=== PATIENT | female | born 1965 | race Caucasian/White ===

== ENCOUNTER 2016-06-05 01:36 | Observation (INO) | payer OTHER ==
--- NOTE | 2016-06-05 01:48 | C.PDOC ---
History Of Present Illness Patient took some unknown sleep medication . last known at baseline around 10 pm. Pt about 1 hour ago fell, as per her , she did not hit her head or any loc. But pt with bizarre affect, somewhat confused . Moves all extremities Time Seen by Provider: 06/05/16 01:43 Chief Complaint (Nursing): Altered Mental Status History Per: Family History/Exam Limitations: Clinical Condition Onset/Duration Of Symptoms: Hrs Onset Of Symptoms: <3 Hours Current Symptoms Are (Timing): Still Present Usual Baseline: Alert Oriented Exacerbating Factor(s): Other (poss sleeping medication and fall) Use Of Anticoag/Antiplatelets: No Speech Is: Normal Decreased Ability To: Stand Severity: Moderate Pain Scale Rating Of: 5 Recent travel outside of the [place]: No Additional History Per: Family Associated Symptoms: Trouble Concentrating. denies: Fever, Chills, Chest Pain, Neck Pain, Back Pain, Headache, Vomiting, Falling Past Medical History Reviewed: Historical Data, Nursing Documentation, Vital Signs Vital Signs: Last Vital Signs Temp 98.3 F 06/05/16 01:45 Pulse 136 H 06/05/16 01:45 Resp 22 06/05/16 01:45 BP 139/96 H 06/05/16 01:45 Pulse Ox 98 06/05/16 03:20 - Medical History PMH: Migraine Family History: States: No Known Family Hx - Social History Hx Tobacco Use: No Hx Alcohol Use: No Hx Substance Use: No - Immunization History Hx Influenza Vaccination: No Hx Pneumococcal Vaccination: No Review Of Systems Constitutional: Negative for: Fever, Chills Eyes: Negative for: Redness ENT: Negative for: Throat Pain Cardiovascular: Negative for: Chest Pain, Palpitations Respiratory: Negative for: Shortness of Breath Gastrointestinal: Negative for: Nausea, Vomiting, Abdominal Pain Genitourinary: Negative for: Dysuria Musculoskeletal: Negative for: Back Pain Skin: Negative for: Rash, Lesions, Jaundice, Bruising Neurological: Positive for: Confusion Psych: Positive for: Anxiety Physical Exam - Physical Exam Appears: In Acute Distress Skin: Warm, Dry Head: Atraumatic, Normacephalic Eye(s): bilateral: Normal Inspection, PERRL, EOMI Oral Mucosa: Moist Lips: Normal Appearing Neck: Supple Chest: Symmetrical Cardiovascular: Rhythm Regular Respiratory: No Rales, No Rhonchi, No Wheezing Gastrointestinal/Abdominal: Soft, No Tenderness, No Distention Back: Normal Inspection Extremity: Normal ROM Extremity: Bilateral: Normal Color And Temperature, Normal ROM Neurological/Psych: Oriented x3, Normal Speech, Normal Cognition Gait: Unsteady ED Course And Treatment - Laboratory Results Result Diagrams: 06/05/16 02:02 06/05/16 02:02 ECG: Interpreted By Me, Viewed By Me ECG Rhythm: Sinus Tachycardia (147), Nonspecific Changes O2 Sat by Pulse Oximetry: 98 Pulse Ox Interpretation: Normal - Radiology CXR: Interpreted by Me, Viewed By Me CXR Interpretation: Yes: Other (? rll infiltrate). No: Fracture, Pnemothorax Progress Note: blood work, ct head. 4:15 pt resting , vitals stable Critical Care Time - Critical Care Note Total Time (in mins): 30 Documented critical care: time excludes all time spent performing seperately billable procedures. Disposition Discussed With Dr.: Flaco Patel Comment: accepted the pt on his service and took over the care at 3:13AM Doctor Will See Patient In The: Hospital Counseled Patient/Family Regarding: Studies Performed, Diagnosis - Disposition Disposition: HOSPITALIZED Disposition Time: 01:48 Condition: GUARDED - POA Present On Arrival: None - Clinical Impression Clinical Impression: Change in mental status, Medication reaction Decision To Admit - Pt Status Changed To: Hospital Disposition Of: Inpatient - Admit Certification Admit to Inpatient:: After my assessment, the patient will require hospitalization for at least two midnights. This is because of the severity of symptoms shown, intensity of services needed, and/or the medical risk in this patient being treated as an outpatient. - InPatient: Physician Admission Certification:: After my assessment, the patient will require hospitalization for at least two midnights. This is because of the severity of symptoms shown, intensity of services needed, and/or the medical risk in this patient being treated as an outpatient. - . Bed Request Type: Telemetry Admitting Physician: Flaco Patel Patient Diagnosis: Change in mental status, Medication reaction
[2016-06-05] MEDS ORDERED: DiphenhydrAMINE 50 mg/ml Inj ONE (01:50)
[2016-06-05] MEDS ORDERED: DiphenhydrAMINE 50 mg/ml Inj IVP STA (02:06)
[2016-06-05 02:07] LABS: BASO # 0.2 K/uL (0.0-0.2); EOS # 0.2 K/uL (0.0-0.7); EOS % 2.1 % (0.0-4.0); LYMPH # 4.1 K/uL (1.0-4.3); LYMPH % 38.9 % (20.0-40.0); MEAN CELL VOLUME 81.9 fL (81.0-99.0); MEAN CORPUSCULAR HEMOGLOBIN 27.1 pg (27.0-31.0); MEAN CORPUSCULAR HGB CONC 33.1 g/dL (33.0-37.0); MEAN PLATELET VOLUME 8.6 fL (7.2-11.7); MONO % 9.1 % (0.0-10.0); RED CELL DISTRIBUTION WIDTH 15.4 % (11.5-14.5); WHITE BLOOD COUNT 10.5 K/uL (4.8-10.8)
[2016-06-05 02:12] LABS: VENOUS BLOOD GAS BASE EXCESS 1.7 mmol/L (0.0-2.0); VENOUS BLOOD GAS PCO2 42 mmHg (40-60); VENOUS BLOOD PH 7.41 (7.32-7.43)
[2016-06-05 02:36] LABS: CHLORIDE 104 mmol/L (98-107)
[2016-06-05 02:37] LABS: POTASSIUM 4.3 mmol/L (3.6-5.2); SODIUM 142 mmol/L (132-148)
[2016-06-05 02:39] LABS: ALB/GLOB RATIO 1.1 (1.0-2.1); ALKALINE PHOSPHATASE 118 U/L (38-126); ALT/SGPT 24 U/L (9-52); AST/SGOT 23 U/L (14-36); BILIRUBIN,TOTAL 0.6 mg/dL (0.2-1.3); BLOOD UREA NITROGEN 9 mg/dL (7-17); CARBON DIOXIDE 23 mmol/L (22-30); GFR AFRICAN-AMERICAN > 60; GLUCOSE,RANDOM 99 mg/dL (65-105); TOTAL PROTEIN 8.3 g/dL (6.3-8.3)
[2016-06-05 02:40] LABS: CALCIUM 8.8 mg/dl (8.6-10.4)
[2016-06-05 02:44] LABS: RBC URINE < 1 /hpf (0-3); URINE BILIRUBIN NEGATIVE (NEGATIVE); URINE BLOOD NEGATIVE (NEGATIVE); URINE COLOR Straw (YELLOW); URINE GLUCOSE (UA) NORMAL (Normal); URINE KETONE NEGATIVE (NEGATIVE); URINE LEUKOCYTE ESTERASE NEG Leu/uL (Negative); URINE PROTEIN NEGATIVE (NEGATIVE); URINE UROBILINOGEN NORMAL mg/dL (0.2-1.0); WBC URINE < 1 /hpf (0-5)
[2016-06-05] MEDS ORDERED: cefTRIAXone IV 1 gm in Dextros 50 ML IVPB ONE (03:40)
[2016-06-05 07:36] LABS: PHOSPHOROUS 3.7 mg/dL (2.5-4.5)
[2016-06-05 07:37] LABS: MAGNESIUM 2.1 mg/dL (1.6-2.3)
[2016-06-05 07:55] LABS: FREE T4 0.84 ng/dL (0.78-2.19)
[2016-06-05 08:09] LABS: THYROID STIMULATING HORMONE 3.29 mIU/L (0.46-4.68)
--- NOTE | 2016-06-05 09:01 | CT ---
PROCEDURE: CT HEAD WITHOUT CONTRAST. HISTORY: R/O Bleed, s/p fall COMPARISON: None available. TECHNIQUE: Axial computed tomography images were obtained through the head/brain without intravenous contrast. Radiation dose: Total exam DLP = 886.04 mGy-cm. This CT exam was performed using one or more of the following dose reduction techniques: Automated exposure control, adjustment of the mA and/or kV according to patient size, and/or use of iterative reconstruction technique. FINDINGS: Examination markedly limited due to excessive motion artifact; base of skull images are essentially nondiagnostic. HEMORRHAGE: No gross intracranial hemorrhage identified. Small intracranial hemorrhages cannot be adequately assessed on this examination. BRAIN: No mass effect or edema. No obvious atrophy or chronic microvascular ischemic changes. VENTRICLES: No hydrocephalus. CALVARIUM: Unremarkable. PARANASAL SINUSES: Mild mucosal thickening of the right maxillary sinus. MASTOID AIR CELLS: Grossly unremarkable as visualized. OTHER FINDINGS: None. IMPRESSION: Examination markedly limited due to excessive motion artifact; base of skull images are essentially nondiagnostic. Repeat study when clinically feasible is recommended. No gross intracranial hemorrhage. Preliminary impression was provided by virtual radiologic.
--- NOTE | 2016-06-05 09:04 | RAD ---
HISTORY: change ms COMPARISON: None available. TECHNIQUE: Chest, one view. FINDINGS: Examination limited by habitus and hypoinflation. LUNGS: No focal consolidation. Please note that chest x-ray has limited sensitivity for the detection of pulmonary masses. PLEURA: No significant pleural effusion identified. No definite pneumothorax . CARDIOVASCULAR: The cardiomediastinal silhouette appears within normal limits of size. OSSEOUS STRUCTURES: No acute osseous abnormality identified. VISUALIZED UPPER ABDOMEN: Unremarkable. OTHER FINDINGS: None. IMPRESSION: No focal consolidation, significant pleural effusion, or definite pneumothorax identified.
--- NOTE | 2016-06-05 09:59 | CP.PCM.HP ---
History of Present Illness - History of Present Illness History of Present Illness: 51-year-old female patient presented to the hospital with complaint of altered mental status. Patient states that she took medicine prescribed by orthopedist for her hand pain. Patient fainted in the bathroom today. Complaint of difficulty using the hand and increased sensitivity to touch. No substance abuse history. No any other complaints Present on Admission - Present on Admission Any Indicators Present on Admission: No Past Patient History - Infectious Disease Hx of Infectious Diseases: None - Past Social History Smoking Status: Never Smoked - NEUROLOGICAL Hx Migraine: Yes - PSYCHIATRIC Hx Substance Use: No - SURGICAL HISTORY Hx Section: Yes - ANESTHESIA Hx Anesthesia: Yes Hx Anesthesia Reactions: No Meds Allergies/Adverse Reactions: Allergies Allergy/AdvReac Type Severity Reaction Status Date / Time No Known Allergies Allergy Verified 07/02/14 12:15 Physical Exam - Constitutional Appears: Well - Head Exam Head Exam: ATRAUMATIC, NORMAL INSPECTION, NORMOCEPHALIC - Eye Exam Eye Exam: EOMI, Normal appearance, PERRL Pupil Exam: NORMAL ACCOMODATION, PERRL - ENT Exam ENT Exam: Mucous Membranes Moist, Normal Exam - Neck Exam Neck exam: Positive for: Normal Inspection - Respiratory Exam Respiratory Exam: Decreased Breath Sounds - Cardiovascular Exam Cardiovascular Exam: REGULAR RHYTHM, +S1, +S2 - GI/Abdominal Exam GI & Abdominal Exam: Diminished Bowel Sounds, Soft - Rectal Exam Rectal Exam: Deferred Results - Vital Signs Recent Vital Signs: Last Vital Signs Temp 98 F 06/05/16 08:38 Pulse 110 H 06/05/16 08:38 Resp 20 06/05/16 08:38 BP 110/77 06/05/16 08:38 Pulse Ox 96 06/05/16 08:38 - Labs Result Diagrams: 06/05/16 02:02 06/05/16 02:02 Labs: Laboratory Results - last 24 hr 06/05/16 06/05/16 06/05/16 07:09 07:09 07:09 ESR 45 H Phosphorus 3.7 Magnesium 2.1 Free T4 0.84 TSH 3rd Generation 3.29 Prolactin 18.0 Assessment & Plan (1) Change in mental status Status: Acute (2) Low back pain Status: Acute (3) Medication reaction Status: Acute (4) Muscle strain Status: Acute - Assessment and Plan (Free Text) Plan: Labs and meds reviewed Neurology consult Psych consult Rocephin Continue aspirin Monitor vitals
[2016-06-05] MEDS ORDERED: cefTRIAXone IV 1 gm in Dextros 1 GM in Dextrose 5% In Water 50 ML IVPB SCH (10:00)
[2016-06-05] MEDS: Pantoprazole 40 mg EC Tab PO SCH (10:18)
--- NOTE | 2016-06-05 10:19 | CON ---
DATE: 06/05/2016 PATIENT'S ROOM NUMBER: Emergency Room bed 12. ATTENDING PHYSICIAN: Olivia Patel MD. REASON FOR CONSULTATION: Change in mental status. CHIEF COMPLAINT: The patient was brought in to [facility] with a history of abnormal neurological presentation as per her . From neurological point of view, I was called in to evaluate her for further management. HISTORY OF PRESENT ILLNESS: The patient is a 51-year-old right-handed female in her usual state of health, been taking medication for her pain. It seems that she took extra medication for her pain. Her noted that she had a fall without a hitting her head or loss of consciousness. However, she had a witnessed episode of bizarre affect and confusion from this event. No bowel or bladder incontinence. No tonic-clonic activities at the scene. PAST MEDICAL HISTORY Generalized lipomatosis. Left wrist pain, being followed by orthopedic as well as her primary care physician. ALLERGIES: No known allergies. REVIEW OF SYSTEMS: As per H and P. PERSONAL HISTORY: Denies smoking or alcohol use. PHYSICAL EXAMINATION: VITAL SIGNS: Blood pressure 112/60, mean arterial pressure of 83, respiratory rate 16, temperature 98, pulse rate 100. NECK: Supple. No carotid bruit. HEART: Sounds regular. CHEST: Fair air entry. EXTREMITIES: No edema in legs. NEUROLOGIC EXAMINATION: The patient is sedated due to her Ativan because of her bizarre starring spell. She was arousable on calling her name as well as with tactile stimulation. She knows she is in the hospital. She was able to tell the reason why she is in the hospital. However, change in mental status and how she was brought into the hospital is slightly not rememberable by her. At present, denies headache. However, she feels sleepy from her medication. She was able to tell the past medical history and the medication without knowing the name, for wrist pain. No similar episodes have happened in the past. At present, she denies headache. No visual or bulbar dysfunction, no focal weakness. CRANIAL NERVE EXAMINATION: Visual field respond to visual threat. Pupils react to light. Extraocular movement normal. No nystagmus, significant facial asymmetry manifesting as a flattening of the right nasolabial fold. Hearing is normal. Tongue is midline. Speech is dysarthric as well as slurred. MOTOR: No drift on outstretched hand with eyes closed. No drift noted. Power is symmetric on either side. DEEP TENDON REFLEXES: Absent both sides. Plantars are equivocal and responsive. SENSORY EXAMINATION: No cortical sensory loss. COORDINATION: Seems to be intact. GAIT: Deferred at this time because of her sleepiness. CONCLUSION: Upon reviewing her history and neurological examination, the patient had a fall with a bizarre clinical presentation as well as change in mental status, consistent with possible non-convulsive seizures. The current examination also showed a left subcortical dysfunction. Considering her history this has to be ruled out. Either it could be an ischemic process versus space occupying lesion manifesting with seizures. WORKUP: CT of the head reviewed. No acute pathologies noted. BLOOD WORKUP: WBC 10.5, hemoglobin 13.2, hematocrit 40.0, platelet 318. PT 10.9, INR 1.0, PTT 34. Sodium 142, potassium 4.3, chloride 104, bicarbonate 23 , BUN 9, creatinine 0.8, GFR more than 60, calcium 8.8, magnesium 2.1, phosphorus 3.7. TSH 3.29. Prolactin 18.0. Urinalysis does not show any drug. RECOMMENDATIONS: 1. MRI of the brain with and without gadolinium to rule out any space occupying lesion. 2. Fall precaution and seizure precaution. 3. EEG/carotid Doppler and echocardiogram. 4. Ecotrin should be started for stroke prophylaxis. Continue the rest of the medication she has been getting. As far as possible, stay away from sedation that could mask other neurological presentation. Continue hydration. The patient will be followed closely with you, no antiepileptic drugs is recommended until all workup is completed. Lorenzo Crocker MD cc: [id number] TT: 06/05/2016 10:19:00 Confirmation # [id number] Dictation # [id number]
[2016-06-05] MEDS ORDERED: Gadodiamide 287 MG/ML VIAL (15ML) IV ONE (10:55)
--- NOTE | 2016-06-05 12:34 | MRI ---
PROCEDURE: MRI BRAIN WITH AND WITHOUT CONTRAST HISTORY: R/O Mass COMPARISON: Comparison made with CT scan brain dated 06/05/2016 at 2:18 a.m.. . TECHNIQUE: Multiplanar, multisequence MR images of the brain were obtained with and without intravenous contrast enhancement. 13 cc of Omniscan injected. Study is limited by motion artifact. FINDINGS: HEMORRHAGE: No acute parenchymal, subarachnoid nor extra-axial hemorrhage. No evidence of hemosiderin deposition identified on gradient echo weighted sequences. DWI: No evidence of an acute or early subacute infarction. BRAIN PARENCHYMA: There is small focal area of increased T2 signal in the left frontal subcortical white matter that could represent artifact however possibility of a small chronic ischemic focus cannot be excluded. See axial FLAIR series 11, image number 10 versus. ENHANCEMENT: No enhancing parenchymal nor extra-axial masses or collections or unusual identified. No evidence of unusual meningeal enhancement so far as can be seen VENTRICLES: Unremarkable. No hydrocephalus. CRANIUM: Unremarkable. ORBITS: Grossly unremarkable. PARANASAL SINUSES/MASTOIDS: Clear VASCULAR SYSTEM: Major vascular flow voids at skull base are patent OTHER FINDINGS: None . IMPRESSION: Study is limited by motion artifact. small focal area of increased T2 signal in the left frontal subcortical white matter that could represent artifact however possibility of a small chronic ischemic focus cannot be excluded. See axial FLAIR series 11, image number 10 versus. No enhancing masses seen.
[2016-06-06] MEDS: Pantoprazole 40 mg EC Tab PO SCH (09:55)
[2016-06-06] MEDS ORDERED: cefTRIAXone IV 1 gm in Dextros 50 ML IVPB SCH (10:00)
--- NOTE | 2016-06-06 12:37 | PCM.PSYCH ---
Initial Psychiatric Evaluation - Initial Psychiatric Evaluation Legal Status: Capacity Chief Complaint (in patient's own words): my hand hurts. my called 911 after bi fainted using the bathroom Patient's Reaction to Hospitalization: i tookthe medicine the orthopedist gave bme for pain in my hand but it does not help. History of Present Illness and Precipitating Events: pt is 52 year old employed female who swas admitted to hospital for altered mental status. t had taken medicine prescribed by orthopedist for pain ninher hand . pt used the bathroom and fainted. pt's hand is sensitive to touch, she has difficult using it. pt may have complex regional pain syndrome pt has no other medical problemsCRPSPt has been marriedfor 35 years. she had c2 sons. 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 there is no family hidtoryof mental illnes or substance abuse. both parents are still. pt has a younger brotherand younger sister. Current Medications: Active Medications Generic Name Dose Route Start Last Admin Trade Name Freq PRN Reason Stop Dose Admin Aspirin 81 mg 06/06/16 10:00 06/06/16 10:05 Aspirin Chewable PO 81 mg DAILY ESTHER Administration Ceftriaxone Sodium 50 mls @ 50 mls/30 min 06/06/16 10:00 06/06/16 10:03 Rocephin Iv 1 Gm Duplex IVPB 50 mls/30 min DAILY ESTHER Administration Pantoprazole Sodium 40 mg 06/05/16 10:00 06/06/16 09:55 Protonix Ec Tab PO 40 mg DAILY ESTHER Administration Tramadol HCl 50 mg 06/05/16 18:33 06/06/16 07:15 Ultram PO 50 mg Q6 PRN Administration Pain, moderate (4-7) Past Psychiatric History - Past Psychiatric History Previous Treatment History: None Pertinent Medical Hx (Current Medical&Sleep Prob, Allergies): Allergies Allergy/AdvReac Type Severity Reaction Status Date / Time No Known Allergies Allergy Verified 07/02/14 12:15 Sleep Aid tab PO HS 06/05/16 Review of Systems - Constitutional Constitutional: Malaise - EENT Eyes: UNREMARKABLE Ears: UNREMARKABLE Nose/Mouth/Throat: UNREMARKABLE - Breasts Breasts: UNREMARKABLE - Cardiovascular Cardiovascular: UNREMARKABLE - Respiratory Respiratory: UNREMARKABLE - Gastrointestinal Gastrointestinal: UNREMARKABLE - Genitourinary Genitourinary: UNREMARKABLE - Reproductive: Female Reproductive:Female: UNREMARKABLE - Menstruation Menstruation: UNREMARKABLE - Musculoskeletal Musculoskeletal: Limited Range of Motion, Muscle Weakness, Tingling - Integumentary Integumentary: UNREMARKABLE - Neurological Neurological: UNREMARKABLE - Psychiatric Psychiatric: UNREMARKABLE - Endocrine Endocrine: UNREMARKABLE - Hematologic/Lymphatic Hematologic: UNREMARKABLE Mental Status Examination - Affect Affect: Blunted - Motor Activity Motor Activity: Calm - Reliability in Providing Information Reliability in Providing Information: Good - Speech Speech: Organized - Mood Mood: Anxious - Formal Thought Process Formal Thought Process: No Impairment - Obsessions/Compulsions Obsessions: None Compulsions: None - Cognitive Functions Orientation: Person, Place, Situation, Time Sensorium: Alert Attention/Concentration: Attentive Abstract Thinking: As evidence by abstract perception of proverbs Estimate of Intelligence: Above Average Judgement: Intact, as evidence by: Good judgement Memory: Recent intact, as evidence by: Ability to recall events of the day, Remote intact, as evidenced by: Ability to recall historical events - Risk Risk: Other Additional comments: inability to use left hand - Strength & Assets Inventory Strength & Assets Inventory: Intelligence, Family support, Education, Employment status, Employment history, Life experience, Cooperative - Limitations Limitations: Other DSM 5 DX - Recommended/Plan of Treatment Treatment Recommendations and Plan of Treatment: general anxiety disorder due to a medical condition. general anxiety due to a medical condition tramadol as needed consider complex regional pain syndrome Projected ELOS: 5 days Prognosis: good - Smoking Cessation Smoking Cessation Initiated: No Reason for not providing: does not smoke
[2016-06-06 16:30] VITALS: BP 99/61; RESP 20; TEMP 98; O2SAT 97
[2016-06-06 19:17] VITALS: PULSE 78
--- NOTE | 2016-06-06 19:30 | CP.PCM.PN ---
Subjective - Date & Time of Evaluation Date of Evaluation: 06/06/16 Time of Evaluation: 10:25 - Subjective Subjective: Clinical history Objective - Vital Signs/Intake and Output Vital Signs (last 24 hours): Temp Pulse Resp BP Pulse Ox 98 F 78 20 99/61 L 97 06/06/16 15:00 06/06/16 16:00 06/06/16 15:00 06/06/16 15:00 06/06/16 15:00 Intake and Output: 06/06/16 06/07/16 18:59 06:59 Intake Total 500 Balance 500 - Medications Medications: Current Medications Aspirin (Aspirin Chewable) 81 mg PO DAILY [facility] Last Admin: 06/06/16 10:05 Dose: 81 mg Ceftriaxone Sodium (Rocephin Iv 1 Gm Duplex) 50 mls @ 50 mls/30 min IVPB DAILY [facility] Last Admin: 06/06/16 10:03 Dose: 50 mls/30 min Pantoprazole Sodium (Protonix Ec Tab) 40 mg PO DAILY [facility] Last Admin: 06/06/16 09:55 Dose: 40 mg Tramadol HCl (Ultram) 50 mg PO Q6 PRN PRN Reason: Pain, moderate (4-7) Last Admin: 06/06/16 16:37 Dose: 50 mg - Labs Labs: PT 10.9 SECONDS (9.7-12.2) 06/05/16 02:02 INR 1.0 06/05/16 02:02 APTT 34 SECONDS (21-34) 06/05/16 02:02 Assessment and Plan (1) Change in mental status Status: Acute (2) Low back pain Status: Acute (3) Medication reaction Status: Acute (4) Muscle strain Status: Acute - Assessment and Plan (Free Text) Plan: Patient feeling better Cleared by psych Discharge to home Follow up in the office tomorrow Continue home meds
--- NOTE | 2016-06-07 15:48 | CARD ---
APPROVED REPORT EKG Measurement Heart [id number] <Conclusion> Sinus tachycardia Nonspecific ST and T wave abnormality Abnormal ECG
--- NOTE | 2016-06-08 10:14 | VASCLAB ---
PROCEDURE: HISTORY: R/O Stenosis, bruit COMPARISON: None available. TECHNIQUE: Grayscale and duplex Doppler evaluation of the cervical carotid and vertebral arteries were performed. The common carotid, carotid bifurcations and cervical Internal Carotid Artery (ICA) and proximal External Carotid Artery (ECA) were evaluated. The vertebral arteries were evaluated for gross patency and flow direction. Report prepared by SUSSY Rees, RVT FINDINGS: RIGHT CAROTID ARTERIES: 1. Common Carotid Artery: No significant focal plaque formation of the right common carotid artery. Maximum Peak Systolic velocity: 84 cm/sec: End-diastolic velocity 26 cm/sec. 2. Carotid Bifurcation: plaque formation. Maximum Peak Systolic velocity: 85 cm/sec: End-diastolic velocity 23 cm/sec. 3. Internal Carotid Artery: Plaque description: Heterogeneous 3.1. Proximal Segment: Peak systolic velocity 41 cm/sec: End-diastolic velocity 15 cm/sec - % stenosis 3.2. Middle Segment: Peak systolic velocity 80 cm/sec: End-diastolic velocity 39 cm/sec - % stenosis 3.3. Distal Segment: Peak systolic velocity 68 cm/sec: End-diastolic velocity 30 cm/sec - % stenosis 4. External Carotid Artery: No significant focal plaque formation. Peak systolic velocity 85 cm/sec 5. ICA/CCA Ratio: 1.4 LEFT CAROTID ARTERIES: 1. Common Carotid Artery: No significant focal plaque formation of the left common carotid artery. Maximum Peak Systolic velocity: 115 cm/sec: End-diastolic velocity 33 cm/sec. 2. Carotid Bifurcation: plaque formation. Maximum Peak Systolic velocity: 83 cm/sec: End-diastolic velocity 22 cm/sec. 3. Internal Carotid Artery: Plaque description: Heterogeneous 3.1. Proximal Segment: Peak systolic velocity 100 cm/sec: End-diastolic velocity 28 cm/sec - % stenosis 3.2. Middle Segment: Peak systolic velocity 87 cm/sec: End-diastolic velocity 26 cm/sec - % stenosis 3.3. Distal Segment: Peak systolic velocity 68 cm/sec: End-diastolic velocity 25 cm/sec - % stenosis 4. External Carotid Artery: No significant focal plaque formation. Peak systolic velocity 117 cm/sec 5. ICA/CCA Ratio: 104 VERTEBRAL ARTERIES: 1. Right Vertebral Artery: The right vertebral artery flow direction is antegrade. 2. Left Vertebral Artery: The left vertebral artery flow direction is antegrade. OTHER FINDINGS: 1. Right Brachial Blood pressure: mmHg. 2. Left Brachial Blood pressure: MmHg. 3. Brachial pressures were not obtained. IMPRESSION: RIGHT: Duplex scan does not suggest hemodynamically significant stenosis of the right extracranial carotid arteries. LEFT: Duplex scan does not suggest hemodynamically significant stenosis of the left extracranial carotid arteries.
== END 2016-06-06 22:18 | disposition home or self-care (01) ==
LOC: C.ER 01:36 → INTOOBSV 03:14 → C.9E 03:14 → C.6T 20:20
PROVIDERS: ADMIT Internal Medicine Nephrology; ATTEND Internal Medicine Nephrology
DX: R41.82 Altered mental status, unspecified (principal); T50.995A Adverse effect of other drugs, medicaments and biological substances, initial encounter; G90.512 Complex regional pain syndrome I of left upper limb; F41.1 Generalized anxiety disorder
CPT/HCPCS: 36415; 70450; 70553; 71010; 80053; 80324; 80345; 80346; 80349; 80353; 80358; 80361; 81001; 82009; 82330; 82803; 83036; 83690; 83735; 83880; 83992; 84100; 84146; 84439; 84443; 84484; 85025; 85610; 85651; 85730; 93005; 93880; 96365; 96375; 96376; 99285; A9579; G0378; J0696; J1200; J2060